=== PATIENT | male | born 1995 | race Hispanic/Latino ===

== ENCOUNTER 2017-02-15 19:24 | Emergency (ER) | payer OTHER ==
[2017-02-15 19:24] VITALS: BMI 29.9
[2017-02-15 19:41] VITALS: RESP 20; TEMP 97.6
--- NOTE | 2017-02-15 20:08 | C.PDOC ---
History Of Present Illness Patient is a 21 year old male who presents to the ER with a complaint of abrasions to the 3rd, 4th, and 5th knuckle of the left hand. Denies any other injury or trauma. Time Seen by Provider: 02/15/17 19:48 Chief Complaint (Nursing): Upper Extremity Problem/Injury History Per: Patient History/Exam Limitations: no limitations Onset/Duration Of Symptoms: Hrs Current Symptoms Are (Timing): Still Present Past Medical History Reviewed: Historical Data, Nursing Documentation, Vital Signs Vital Signs: Last Vital Signs Temp 97.6 F 02/15/17 19:38 Pulse 98 H 02/15/17 19:38 Resp 20 02/15/17 19:38 BP 148/98 H 02/15/17 19:38 Pulse Ox 97 02/15/17 20:16 - Medical History PMH: Bipolar Disorder, Depression - [facility] Procedures FAMILY THERAPY (06/28/13) GROUP PSYCHOTHERAPY (10/19/16) INDIVID PSYCHOTHERAP NEC (03/12/14) OTHER GROUP THERAPY (03/12/14) PSYCHIA INTERV/EVAL NEC (02/19/14) Family History: States: Diabetes - Social History Hx Tobacco Use: No Hx Alcohol Use: No Hx Substance Use: No - Immunization History Hx Tetanus Toxoid Vaccination: No Hx Influenza Vaccination: No (10/2015) Hx Pneumococcal Vaccination: No Review Of Systems Musculoskeletal: Positive for: Hand Pain (Abrasion on 3rd, 4th, 5th knuckles of the left hand.) Skin: Negative for: Bruising Physical Exam - Physical Exam Appears: Well, Non-toxic Skin: Normal Color, Warm, Dry Head: Atraumatic, Normacephalic Oral Mucosa: Moist Cardiovascular: Rhythm Regular Respiratory: Normal Breath Sounds, No Rales, No Rhonchi, No Wheezing Gastrointestinal/Abdominal: Soft, No Tenderness Extremity: Left: Normal ROM (Hand, normal, capillary refill, normal pulse) ED Course And Treatment O2 Sat by Pulse Oximetry: 97 (Room air) Pulse Ox Interpretation: Normal - Other Rad hand X-Ray: Interpreted by Me, Viewed By Me Progress Note: Bacitracin, Motrin PO, and Tetanus administered. Hand x-ray ordered. Reevaluation Time: 21:02 Reassessment Condition: Improved Medical Decision Making Medical Decision Making: no fx noted on xray. willl d/c with ibuprofen and bacitracin. Disposition Counseled Patient/Family Regarding: Studies Performed, Diagnosis, Need For Followup, Rx Given - Disposition Referrals: [facility] [Outside] Disposition: HOME/ ROUTINE Disposition Time: 21:03 Condition: IMPROVED Additional Instructions: Follow up with your doctor. Ibuprofen for pain. Bacitracin to abrasions. Prescriptions: Bacitracin Ointment [Bacitracin] 30 gm TOP BID #1 tube Forms: General Discharge Instructions - Clinical Impression Clinical Impression: Contusion of hand including fingers, Abrasions of multiple sites - Scribe Statement The provider has reviewed the documentation as recorded by the Scribe Nilay Hall All medical record entries made by the Scribe were at my direction and personally dictated by me. I have reviewed the chart and agree that the record accurately reflects my personal performance of the history, physical exam, medical decision making, and the department course for this patient. I have also personally directed, reviewed, and agree with the discharge instructions and disposition.
[2017-02-15] MEDS ORDERED: Bacitracin 500 Units/gm Oint Foilpak UD TOP ONE (20:09)
[2017-02-15] MEDS ORDERED: Bacitracin 500 Units/gm Oint Foilpak UD ONE (20:20)
[2017-02-15 21:15] VITALS: BP 149/98; PULSE 90; O2SAT 98
--- NOTE | 2017-02-16 08:19 | RAD ---
PROCEDURE: Left Hand Radiographs. Three views HISTORY: punch cr. pain to 5th digit COMPARISON: None. FINDINGS: BONES: Normal. No fracture. JOINTS: Normal. No osteoarthritic changes. SOFT TISSUES: Normal. OTHER FINDINGS: None. IMPRESSION: Negative acute. If pain persists, consider MRI.
== END 2017-02-15 21:15 | disposition home or self-care (01) ==
LOC: C.ER 19:24
DX: S60.413A Abrasion of left middle finger, initial encounter (principal); S60.415A Abrasion of left ring finger, initial encounter; S60.417A Abrasion of left little finger, initial encounter; S60.00XA Contusion of unspecified finger without damage to nail, initial encounter; X58.XXXA Exposure to other specified factors, initial encounter

== ENCOUNTER 2017-05-15 00:48 | Emergency (ER) | payer OTHER ==
[2017-05-15 00:49] VITALS: BMI 29.9
[2017-05-15 01:02] VITALS: RESP 20
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
[2017-05-15 02:43] VITALS: BP 122/76; PULSE 74; TEMP 98.5; O2SAT 100
== END 2017-05-15 02:44 | disposition home or self-care (01) ==
LOC: C.ER 00:48
DX: F90.9 Attention-deficit hyperactivity disorder, unspecified type (principal)

== ENCOUNTER 2017-07-27 22:47 | Emergency (ER) | payer OTHER ==
[2017-07-27 22:47] VITALS: BMI 29.9
[2017-07-27 22:51] VITALS: BP 136/81; PULSE 102; RESP 20; TEMP 97.8; O2SAT 97
[2017-07-27] MEDS ORDERED: Bacitracin 500 Units/gm Oint Foilpak UD ONE (23:02)
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
== END 2017-07-27 23:10 | disposition home or self-care (01) ==
LOC: C.ER 22:47
DX: S60.222A Contusion of left hand, initial encounter (principal); S60.512A Abrasion of left hand, initial encounter; W22.8XXA Striking against or struck by other objects, initial encounter

== ENCOUNTER 2018-04-13 18:36 | Emergency (ER) | payer OTHER ==
[2018-04-13 18:36] VITALS: BMI 29.9
[2018-04-13 18:53] VITALS: RESP 18
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
[2018-04-13 21:44] VITALS: BP 125/76; PULSE 93; TEMP 98.2; O2SAT 96
== END 2018-04-13 21:43 | disposition home or self-care (01) ==
LOC: C.ER 18:36
DX: F90.9 Attention-deficit hyperactivity disorder, unspecified type (principal)

== ENCOUNTER 2018-06-06 23:09 | Emergency (ER) | payer OTHER ==
[2018-06-06 23:14] VITALS: BMI 25.1
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
[2018-06-06 23:30] LABS: BASO # 0.1 K/uL (0.0-0.2); BASO % 0.7 % (0.0-2.0); EOS # 0.3 K/uL (0.0-0.7); EOS % 2.4 % (0.0-4.0); HEMOGLOBIN 15.7 g/dL (12.0-18.0); LYMPH # 4.4 K/uL (1.0-4.3); LYMPH % 38.3 % (20.0-40.0); MEAN CORPUSCULAR HEMOGLOBIN 33.7 pg (27.0-31.0); MEAN CORPUSCULAR HGB CONC 35.5 g/dL (33.0-37.0); MEAN PLATELET VOLUME 7.3 fL (7.2-11.7); MONO # 0.8 K/uL (0.0-0.8); MONO % 6.6 % (0.0-10.0); RBC 4.67 Mil/uL (4.40-5.90); RED CELL DISTRIBUTION WIDTH 12.5 % (11.5-14.5); WHITE BLOOD COUNT 11.6 K/uL (4.8-10.8)
[2018-06-06 23:31] LABS: MEAN CELL VOLUME 94.8 fL (80.0-94.0)
[2018-06-06 23:44] LABS: ALB/GLOB RATIO 1.4 (1.0-2.1); ALBUMIN 4.9 g/dL (3.5-5.0); ALT/SGPT 57 U/L (21-72); AST/SGOT 32 U/L (17-59); BLOOD UREA NITROGEN 12 mg/dL (9-20); CALCIUM 9.5 mg/dl (8.6-10.4); GFR AFRICAN-AMERICAN > 60; GFR NON-AFRICAN AMERICAN > 60
[2018-06-07 04:56] LABS: SQUAMOUS EPITHIAL < 1 /hpf (0-5); URINE BILIRUBIN NEGATIVE (NEGATIVE); URINE BLOOD NEGATIVE (NEGATIVE); URINE CLARITY Clear (Clear); URINE COLOR Yellow (YELLOW); URINE GLUCOSE (UA) NORMAL (Normal); URINE LEUKOCYTE ESTERASE NEG Leu/uL (Negative); URINE PROTEIN NEGATIVE (NEGATIVE)
[2018-06-07 05:01] LABS: BARBITURATES, UR NEGATIVE (NEGATIVE); BENZODIAZEPINES, UR NEGATIVE (NEGATIVE); OPIATES, UR NEGATIVE (NEGATIVE); PHENCYCLIDINE, UR NEGATIVE (NEGATIVE)
[2018-06-07 08:23] VITALS: BP 108/74; PULSE 74; RESP 16; TEMP 97.6; O2SAT 98
== END 2018-06-07 12:00 | disposition home or self-care (01) ==
LOC: C.ER 23:09
DX: F31.9 Bipolar disorder, unspecified (principal)
CPT/HCPCS: 80053; 80320; 80324; 80345; 80346; 80349; 80353; 80358; 80361; 81001; 82948; 83992; 85025; 96372; 99285; J2060; J3486

== ENCOUNTER 2018-10-09 16:32 | Emergency (ER) | payer OTHER ==
[2018-10-09 16:33] VITALS: BMI 25.1
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
[2018-10-09 19:11] LABS: BASO % 0.4 % (0.0-2.0); EOS # 0.1 K/uL (0.0-0.7); EOS % 1.4 % (0.0-4.0); HEMOGLOBIN 16.1 g/dL (12.0-18.0); LYMPH % 28.4 % (20.0-40.0); MEAN CELL VOLUME 92.4 fL (80.0-94.0); MEAN CORPUSCULAR HEMOGLOBIN 32.3 pg (27.0-31.0); MEAN PLATELET VOLUME 7.4 fL (7.2-11.7); MONO # 0.7 K/uL (0.0-0.8); MONO % 6.3 % (0.0-10.0); NEUT # 6.8 K/uL (1.8-7.0); NEUT % 63.5 % (50.0-75.0); RBC 4.98 Mil/uL (4.40-5.90); RED CELL DISTRIBUTION WIDTH 12.2 % (11.5-14.5); WHITE BLOOD COUNT 10.7 K/uL (4.8-10.8)
[2018-10-09 19:16] LABS: SQUAMOUS EPITHIAL 1 /hpf (0-5); URINE BILIRUBIN NEGATIVE (NEGATIVE); URINE BLOOD 1+ (NEGATIVE); URINE CLARITY Clear (Clear); URINE COLOR Yellow (YELLOW); URINE GLUCOSE (UA) NORMAL (Normal); URINE LEUKOCYTE ESTERASE NEG Leu/uL (Negative); URINE PROTEIN NEGATIVE (NEGATIVE); URINE UROBILINOGEN NORMAL mg/dL (0.2-1.0)
[2018-10-09 19:31] LABS: BARBITURATES, UR NEGATIVE (NEGATIVE); BENZODIAZEPINES, UR NEGATIVE (NEGATIVE); OPIATES, UR NEGATIVE (NEGATIVE); PHENCYCLIDINE, UR NEGATIVE (NEGATIVE)
[2018-10-09 19:45] LABS: ALBUMIN 5.1 g/dL (3.5-5.0)
[2018-10-09 19:53] LABS: ALT/SGPT 38 U/L (21-72); AST/SGOT 28 U/L (17-59); BLOOD UREA NITROGEN 13 mg/dL (9-20); CALCIUM 9.5 mg/dl (8.6-10.4); GFR NON-AFRICAN AMERICAN > 60
[2018-10-09 19:57] LABS: ALB/GLOB RATIO 1.4 (1.0-2.1)
[2018-10-09 20:13] VITALS: BP 120/78; PULSE 73; RESP 18; TEMP 98.6; O2SAT 98
== END 2018-10-09 20:26 | disposition home or self-care (01) ==
LOC: C.ER 16:32
DX: F41.9 Anxiety disorder, unspecified (principal); F31.9 Bipolar disorder, unspecified; F91.1 Conduct disorder, childhood-onset type

== ENCOUNTER 2018-11-07 15:37 | Emergency (ER) | payer OTHER ==
[2018-11-07 15:44] VITALS: BMI 29.1
[2018-11-07 15:59] VITALS: BP 147/76; PULSE 94; RESP 18; TEMP 99.1; O2SAT 96
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
== END 2018-11-07 16:38 | disposition home or self-care (01) ==
LOC: C.ER 15:37
DX: F31.9 Bipolar disorder, unspecified (principal)